=== PATIENT | female | born 1985 | race Caucasian/White ===

== ENCOUNTER 2017-06-22 23:05 | Emergency (ER) | payer BC ==
[2017-06-22 23:18] VITALS: BP 128/72
--- NOTE | 2017-06-23 00:27 | ER Document Report ---
HPI - HPI Pain Level: 4 Notes: Patient is a 31-year-old female with no significant past medical history presents to the ED complaining of left ankle pain status post injury this evening. Patient states that her foot was asleep after rocking her baby to sleep and she stood up and started walking when her ankle gave out she twisted it. Patient states that she has had pain since then, but is ambulatory. Patient states that she is limping. She has not noticed any obvious bruising or swelling. The pain does not radiate. Denies any headache, fever, chest pain , palpitations, syncope, cough, shortness of breath, wheeze, dyspnea, abdominal pain, nausea/vomiting/diarrhea, urinary retention, dysuria, hematuria, back pain , loss of control of bowel or bladder, numbness/tingling, saddle anesthesia, muscle paralysis/weakness, or rash. - ROS Notes: REVIEW OF SYSTEMS: CONSTITUTIONAL : Denies fever, chills, or sweats. Denies recent illness. EENT: Denies eye, ear, throat, or mouth pain or symptoms. Denies nasal or sinus congestion or discharge. Denies throat, tongue, or mouth swelling or difficulty swallowing. CARDIOVASCULAR: Denies chest pain. Denies palpitations or racing or irregular heart beat. Denies ankle edema. RESPIRATORY: Denies cough, cold, or chest congestion. Denies shortness of breath, difficulty breathing, or wheezing. GASTROINTESTINAL: Denies abdominal pain or distention. Denies nausea, vomiting , or diarrhea. Denies blood in vomitus, stools, or per rectum. Denies black, tarry stools. Denies constipation. GENITOURINARY: Denies difficulty urinating, painful urination, burning, frequency, blood in urine, or discharge. MUSCULOSKELETAL: see hpi SKIN: Denies rash, lesions or sores. NEUROLOGICAL: Denies confusion or altered mental status. Denies passing out or loss of consciousness. Denies dizziness or lightheadedness. Denies headache. Denies weakness or paralysis or loss of use of either side. Denies problems with gait or speech. Denies sensory loss, numbness, or tingling. Denies seizures. ALL OTHER SYSTEMS REVIEWED AND NEGATIVE. Dictation was performed using [employer] voice recognition software - EENT EENT: DENIES: Sore Throat, Ear Pain, Eye problems - NEURO Neurology: DENIES: Headache, Weakness, Vision blurred, Dizzinesss / Vertigo - CARDIOVASCULAR Cardiovascular: DENIES: Chest pain - RESPIRATORY Respiratory: DENIES: Trouble Breathing, Coughing - GASTROINTESTINAL Gastrointestinal: DENIES: Abdominal Pain, Black / Bloody Stools - URINARY Urinary: DENIES: Dysuria, Urgency, Frequency - REPRODUCTIVE LMP: na Reproductive: DENIES: : - MUSCULOSKELETAL Musculoskeletal: REPORTS: Extremity pain Past Medical History - Social History Smoking Status: Unknown if Ever Smoked Family History: CAD, Hyperlipidemia, Hypertension, Malignancy Patient has suicidal ideation: No Patient has homicidal ideation: No - Past Medical History Cardiac Medical History: Denies: Hx Hypertension, Hx Pulmonary Embolism, Hx Heart Murmur Pulmonary Medical History: Denies: Hx Asthma, Hx Sleep Apnea, Hx Tuberculosis Neurological Medical History: Denies: Hx Cerebrovascular Accident, Hx Seizures Endocrine Medical History: Denies: Hx Hyperthyroidism, Hx Hypothyroidism Renal/ Medical History: Denies: Hx Kidney Stones, Hx Ovarian Cysts, Hx Peritoneal Dialysis, Hx Pelvic Inflammatory Disease Malignancy Medical History: Denies: Hx Breast Cancer, Hx Cervical Cancer, Hx Ovarian Cancer GI Medical History: Denies: Hx Gastroesophageal Reflux Disease, Hx Hiatal Hernia , Hx Ulcer Musculoskeltal Medical History: Denies Hx Fibromyalgia Psychiatric Medical History: Denies: Hx Bipolar Disorder, Hx Depression, Hx Post Traumatic Stress Disorder , Hx Schizophrenia Traumatic Medical History: Denies: Hx Fractures Infectious Medical History: Denies: Hx HIV Past Surgical History: Reports: Hx Section - Immunizations Immunizations up to date: Yes Hx Diphtheria, Pertussis, Tetanus Vaccination: Yes Vertical Provider Document - CONSTITUTIONAL Agree With Documented VS: Yes Notes: PHYSICAL EXAMINATION: GENERAL: Well-appearing, well-nourished and in no acute distress. A&Ox4 LUNGS: Breath sounds clear to auscultation bilaterally and equal. No wheezes rales or rhonchi. HEART: Regular rate and rhythm without murmurs, rubs, gallops. Musculoskeletal: Left ankle: FROM to passive/active. Strength 5+/5. No obvious erythema, ecchymosis, swelling, or deformity noted. + tenderness to the anterior ankle to palp. Achilles intact. N/V intact distal. Extremities: No cyanosis, clubbing, or edema b/l. Peripheral pulses 2+. Capillary refill less than 3 seconds. NEUROLOGICAL: Normal speech, limping gait. Normal sensory, motor exams PSYCH: Normal mood, normal affect. SKIN: Warm, Dry, normal turgor, no rashes or lesions noted. - INFECTION CONTROL TRAVEL OUTSIDE OF THE [place] IN LAST 30 DAYS: No - RESPIRATORY O2 Sat by Pulse Oximetry: 100 Course - Re-evaluation Re-evalutation: 06/23/17 01:35 Patient is an afebrile, well-hydrated, 31-year-old female who presents to the ED with left ankle pain, suspect sprain versus strain. Vitals are stable. PE is otherwise unremarkable for any obvious neurovascular compromise, obvious tendon/ligament rupture, obvious fracture/dislocation, septic joint. X-ray was unremarkable for any acute pathology. Ankle stirrup splint provided today. Patient declined crutches. Conservative measures for symptoms otherwise. Recheck with your PCM in 3-5 days. Consider consult orthopedics/physical therapy. Return to the ED with any worsening/concerning symptoms otherwise as reviewed discharge. Patient is in agreement. - Vital Signs Vital signs: Temp Pulse Resp BP Pulse Ox 97.9 F 102 H 18 128/72 H 100 06/22/17 23:16 06/22/17 23:16 06/22/17 23:16 06/22/17 23:16 06/22/17 23:16 Discharge - Discharge Clinical Impression: Left ankle pain Qualifiers: Chronicity: acute Qualified Code(s): M25.572 - Pain in left ankle and joints of left foot Condition: Stable Disposition: HOME, SELF-CARE Instructions: Ankle Exercise Program ([facility]), Ankle Stirrup Splint ([facility]), Ice & Elevation ([facility]), Sprained Ankle ([facility]) Additional Instructions: Rest, Ice, Compression, Elevation Tylenol/ibuprofen as needed Light stretches daily Strength exercises as able Moist heat and massage may help F/u with your PCP in 3-5 days for a recheck Consider consult(s) with Orthopedics/physical therapy for ongoing/worsening symptoms Return to the ED with any worsening symptoms and/or development of fever, headache, chest pain, palpitations, syncope, shortness of breath, trouble breathing, abdominal pain, n/v/d, muscle weakness/paralysis, numbness/tingling, swelling, redness, or other worsening symptoms that are concerning to you. Forms: Elevated Blood Pressure, Return to Work Referrals: [facility] ([place] [Provider Group] - Follow up as needed
--- NOTE | 2017-06-23 01:34 | RADIOLOGY REPORT (SQ) ---
EXAM DESCRIPTION: ANKLE LEFT COMPLETE CLINICAL HISTORY: 31 years, Female, left ankle pain COMPARISON: None. Findings: Bones, joints, and soft tissues of the left ankle appear intact. IMPRESSION: No acute findings. 2011 [employer]- All Rights Reserved
== END 2017-06-23 01:46 | disposition home or self-care (01) ==
LOC: ER 23:05
DX: M25.572 Pain in left ankle and joints of left foot (principal); X50.1XXA Overexertion from prolonged static or awkward postures, initial encounter
CPT/HCPCS: 99283; 73610; L1902

== ENCOUNTER 2017-12-18 05:51 | Emergency (ER) | payer BC ==
[2017-12-18 06:33] LABS: ABSOLUTE EOSINOPHILS # (AUTO) 0.2 10^3/uL (0.0-0.6); ABSOLUTE LYMPHOCYTES (AUTO) 2.1 10^3/uL (0.5-4.7); ABSOLUTE MONOCYTES (AUTO) 1.3 10^3/uL (0.1-1.4); ABSOLUTE NEUT (AUTO) 9.5 10^3/uL (1.7-8.2); BASOPHILS % (AUTO) 0.3 % (0-2); EOSINOPHILS % (AUTO) 1.7 % (0-6); HEMATOCRIT 36.6 % (36.0-47.0); HEMOGLOBIN 12.6 g/dL (12.0-15.5); LYMPHOCYTES % (AUTO) 16.3 % (13-45); MEAN CORPUSCULAR HEMOGLOBIN 29.7 pg (27.0-33.4); MEAN CORPUSCULAR HGB CONC 34.3 g/dL (32.0-36.0); MEAN CORPUSCULAR VOLUME 87 fl (80-97); MONOCYTES % (AUTO) 9.7 % (3-13); PLATELET COUNT 374 10^3/uL (150-450); RED BLOOD COUNT 4.23 10^6/uL (3.72-5.28); RED CELL DISTRIBUTION WIDTH 12.6 % (11.5-14.0); TOTAL CELLS COUNTED % (AUTO) 100 %; WHITE BLOOD COUNT 13.2 10^3/uL (4.0-10.5)
[2017-12-18] MEDS ORDERED: NORMAL SALINE 1000 ML 1,000 ML IV ONE (06:34)
[2017-12-18 06:39] LABS: APPEARANCE,URINE SLIGHTLY-CLOUDY; BILIRUBIN,URINE NEGATIVE (NEGATIVE); COLOR,URINE DARK YELLOW; GLUCOSE, URINE NEGATIVE (NEGATIVE); KETONES,URINE NEGATIVE (NEGATIVE); LEUKOCYTE ESTERASE,URINE NEGATIVE (NEGATIVE); NITRITE,URINE POSITIVE (NEGATIVE); PROTEIN,URINE 100 mg/dL (NEGATIVE); URINE SPECIFIC GRAVITY 1.013
--- NOTE | 2017-12-18 06:53 | ER Document Report ---
ED General - General Mode of Arrival: Ambulatory Information source: Patient TRAVEL OUTSIDE OF THE [place] IN LAST 30 DAYS: No <HARINI PERALES - Last Filed: 12/18/17 16:11> <BHARGAV STODDARD - Last Filed: 12/18/17 17:57> - General Chief Complaint: Pelvic Pain Stated Complaint: FLANK PAIN Time Seen by Provider: 12/18/17 06:32 Notes: Patient is a 32 year old female presenting to the emergency department complaining of multiple symptoms including right lower quadrant pain, back pain , hematuria, and urine urgency. Patient states she attempted to get an IUD placed 2 days ago but it was unsuccessful so she received a depo shot. She states yesterday she began to have cloudy urine then hematuria, urgency and middle low back pain. Patient states she then began to take AZO. This morning patient states she woke up with severe right lower quadrant abdominal pain and decided to present to the emergency department. Patient denies any nausea. (HARINI PERALES) - Related Data Allergies/Adverse Reactions: No Known Allergies Allergy (Unverified 08/30/12 12:45) Past Medical History - Social History Smoking Status: Never Smoker Chew tobacco use (# tins/day): No Frequency of alcohol use: None Drug Abuse: None Family History: CAD, Hyperlipidemia, Hypertension, Malignancy Patient has suicidal ideation: No Patient has homicidal ideation: No - Past Medical History Cardiac Medical History: Denies: Hx Hypertension, Hx Pulmonary Embolism, Hx Heart Murmur Pulmonary Medical History: Denies: Hx Asthma, Hx Sleep Apnea, Hx Tuberculosis Neurological Medical History: Denies: Hx Cerebrovascular Accident, Hx Seizures Endocrine Medical History: Denies: Hx Hyperthyroidism, Hx Hypothyroidism Renal/ Medical History: Denies: Hx Kidney Stones, Hx Ovarian Cysts, Hx Peritoneal Dialysis, Hx Pelvic Inflammatory Disease Malignancy Medical History: Denies: Hx Breast Cancer, Hx Cervical Cancer, Hx Ovarian Cancer GI Medical History: Denies: Hx Gastroesophageal Reflux Disease, Hx Hiatal Hernia , Hx Ulcer Musculoskeletal Medical History: Denies Hx Fibromyalgia Psychiatric Medical History: Denies: Hx Bipolar Disorder, Hx Depression, Hx Post Traumatic Stress Disorder , Hx Schizophrenia Traumatic Medical History: Denies: Hx Fractures Infectious Medical History: Denies: Hx HIV Past Surgical History: Reports: Hx Section - Immunizations Immunizations up to date: Yes Hx Diphtheria, Pertussis, Tetanus Vaccination: Yes <HARINI PERALES - Last Filed: 12/18/17 16:11> Renal/ Medical History: Reports: Hx Ovarian Cysts - PCOS <BHARGAV STODDARD - Last Filed: 12/18/17 17:57> Physical Exam <HARINI PERALES - Last Filed: 12/18/17 16:11> <BHARGAV STODDARD - Last Filed: 12/18/17 17:57> - Vital signs Vitals: Temp Pulse Resp BP Pulse Ox 97.7 F 109 H 16 87/72 L 97 12/18/17 05:59 12/18/17 05:59 12/18/17 05:59 12/18/17 05:59 12/18/17 05:59 - Notes Notes: GENERAL: Alert, appears uncomfortable, writhing in bed. HEAD: Normocephalic, atraumatic. EYES: Pupils equal, round, and reactive to light. Extraocular movements intact. ENT: Oral mucosa moist, tongue midline. NECK: Full range of motion. Supple. Trachea midline. LUNGS: Clear to auscultation bilaterally, no wheezes, rales, or rhonchi. No respiratory distress. HEART: Regular rate and rhythm. No murmurs, gallops, or rubs. ABDOMEN: Soft, LUQ tender to palpation. Non-distended. Bowel sounds present in all 4 quadrants. EXTREMITIES: Moves all 4 extremities spontaneously. No edema. No cyanosis. NEUROLOGICAL: Alert and oriented x3. Normal speech. PSYCH: Normal affect, normal mood. SKIN: Warm, dry, normal turgor. No rashes or lesions noted. BACK: No CVA tenderness to palpation. (HARINI PERALES) Course - Laboratory Result Diagrams: 12/18/17 06:16 12/18/17 06:16 <HARINI PERALES - Last Filed: 12/18/17 16:11> - Laboratory Result Diagrams: 12/18/17 06:16 12/18/17 06:16 <BHARGAV STODDARD - Last Filed: 12/18/17 17:57> - Re-evaluation Re-evalutation: 12/18/17 08:31 CBC shows mild leukocytosis at 13.2, CMP grossly unremarkable, urinalysis shows large blood, positive nitrites, greater than 182 RBCs, trace bacteria. The positive nitrites could be false given the fact that she did take Azo. test is negative. Acute abdominal series was ordered due to concern for possible abdominal perforation given her recent attempted IUD placement, this was negative, CT scan the abdomen and pelvis shows mild right hydroureter and hydronephrosis, no obstructing ureteral calculus identified, these findings could be seen with recently passed ureteral calculus. It did show a normal appendix and no free air. At present I suspect patient has both a urinary tract infection and a recently passed ureteral stone. Patient is already taking Keflex, will be given Rocephin through the IV here and Bactrim will be added to her home medications. Patient will be placed on ibuprofen, acetaminophen and given Story for breakthrough pain. Discharge to home. Urine has been sent for culture. Patient is counseled to return for fevers, worsening pain or new or concerning symptoms. (BHARGAV STODDARD) - Vital Signs Vital signs: Temp Pulse Resp BP Pulse Ox 97.3 F 109 H 22 H 116/71 99 12/18/17 09:45 12/18/17 05:59 12/18/17 09:45 12/18/17 09:45 12/18/17 09:45 - Laboratory Laboratory results interpreted by sc: 12/18/17 12/18/17 12/18/17 06:16 06:16 06:16 WBC 13.2 H Absolute Neutrophils 9.5 H Sodium 145.7 H Chloride 111 H Urine Protein 100 H Urine Blood LARGE H Urine Nitrite POSITIVE H Urine Urobilinogen 4.0 H Discharge <HARINI PERALES - Last Filed: 12/18/17 16:11> <BHARGAV STODDARD - Last Filed: 12/18/17 17:57> - Discharge Clinical Impression: Ureteral stone Urinary tract infection Qualifiers: Urinary tract infection type: acute cystitis Hematuria presence: with hematuria Qualified Code(s): N30.01 - Acute cystitis with hematuria Condition: Stable Disposition: HOME, SELF-CARE Additional Instructions: Urinary Tract Infection Your evaluation indicates that you have a urinary tract infection. This is due to germs growing in the bladder. This is a common problem. This infection usually responds quickly to antibiotics. Your antibiotic should be taken exactly as prescribed. Drink plenty of fluids -- three to four quarts a day. Occasionally, a bladder anesthetic (Azo) will be prescribed to help stop the feeling of urgency until the antibiotic has a chance to clear the infection. This may cause your urine to be dark orange. Certain urine infections require a culture. If the doctor obtained a culture, the results will be back in two days. You should call to see if a change in treatment is needed. A repeat urinalysis after you finish treatment is often recommended. The physician will let you know if further testing is required. Call the doctor if you develop fever, chills, flank pain, inability to urinate, or blood in the urine. You also had a kidney stone. The CAT scan shows that your kidney stone has passed. You will still be sore for the next 1-2 days. If your pain worsens, you develop a fever or you develop any new or concerning symptoms please return. Please continue taking her Keflex in addition to the Bactrim that we have prescribed. Please use ibuprofen (Motrin or Advil) 600-800 mg every 8 hours as needed for pain or fever. You may also use acetaminophen (Tylenol) 1000 mg every 4-6 hours as needed for pain or fever. Please be aware that many medications contain acetaminophen, do not exceed a total of 1000 mg of acetaminophen every 6 hours. Prescriptions: Hydrocodone/Acetaminophen [Story 5-325 mg Tablet] 1 tab PO Q4HP PRN #10 tablet PRN Reason: Phenazopyridine HCl [Azo Urinary Pain Relief] 97.5 mg PO Q8HP PRN #7 tablet PRN Reason: Sulfamethoxazole/Trimethoprim [Bactrim Ds Tablet] 1 each PO BID #14 tablet Forms: Return to Work Scribe Attestation: 12/18/17 17:57 I personally performed the services described in the documentation, reviewed and edited the documentation which was dictated to the scribe in my presence, and it accurately records my words and actions. (BHARGAV STODDARD) Scribe Documentation - Scribe Written by Yariel:: Yariel Pedraza, 12/18/2017 07:25 acting as scribe for :: Oumar <HARINI PERALES - Last Filed: 12/18/17 16:11>
[2017-12-18] MEDS ORDERED: HYDROMORPHONE HCL INJ/PF 2 MG/ML AMPULE IV ONE (06:54)
[2017-12-18] MEDS ORDERED: KETOROLAC TROMETHAMINE INJ/PF 30 MG/1 ML SDV IV ONE (06:54)
[2017-12-18] MEDS ORDERED: PHENAZOPYRIDINE HCL 200 MG TABLET PO ONE (06:54)
[2017-12-18] MEDS ORDERED: ONDANSETRON HCL INJ/PF 4 MG/2 ML SDV IV ONE (06:54)
[2017-12-18 06:56] LABS: ALANINE AMINOTRANSFERASE 21 U/L (9-52); ALBUMIN 3.8 g/dL (3.5-5.0); ALKALINE PHOSPHATASE 75 U/L (38-126); ANION GAP 11 (5-19); ASPARTATE AMINO TRANSFERASE 17 U/L (14-36); BILIRUBIN,DIRECT 0.1 mg/dL (0.0-0.4); BILIRUBIN,TOTAL 0.3 mg/dL (0.2-1.3); BLOOD UREA NITROGEN 12 mg/dL (7-20); CALCIUM 9.1 mg/dL (8.4-10.2); CARBON DIOXIDE 24 mmol/L (22-30); CHLORIDE 111 mmol/L (98-107); GLUCOSE 106 mg/dL (75-110); POTASSIUM 3.7 mmol/L (3.6-5.0); SODIUM 145.7 mmol/L (137-145)
--- NOTE | 2017-12-18 07:21 | RADIOLOGY REPORT (SQ) ---
EXAM DESCRIPTION: CT ABDOMEN WITHOUT IV CONTRAST COMPLETED DATE/TME: 12/18/2017 06:46 CLINICAL HISTORY: Diffuse abdominal pain. COMPARISON: 06/04/2015 TECHNIQUE: CT of the abdomen and pelvis without IV contrast. Evaluation of the solid organs and vasculature is suboptimal due to lack of IV contrast. DLP: 338.25 mGy-cm FINDINGS: Lung Bases: The visualized lung bases are clear. Bones: No destructive bone lesions identified. Abdomen: Liver: The liver has normal size and density. Gallbladder: No calcified gallstones. Spleen, Pancreas, and Adrenal Glands: The spleen, pancreas, and adrenal glands are unremarkable. Kidneys: Moderate left hydroureter and hydronephrosis. No obstructing ureteral calculus identified. Vasculature: The aorta and IVC have normal caliber and position. Stomach: The stomach and duodenum have normal course. Other: No free intraperitoneal air. No free fluid or lymphadenopathy. Pelvis: Bladder: Urinary bladder is unremarkable. Bowel: No dilated loops of large or small bowel. Appendix: Normal appendix. Pelvis: Uterus is not enlarged. IMPRESSION: 1. Mild right hydroureter and hydronephrosis. No obstructing ureteral calculus identified. These findings could be seen with recently passed right ureteral calculus. This exam was performed according to our departmental dose-optimization program, which includes automated exposure control, adjustment of the mA and/or kV according to patient size and/or use of iterative reconstruction technique.
[2017-12-18] MEDS ORDERED: ONDANSETRON 4 MG TAB.RAPDIS PO ONE (07:36)
--- NOTE | 2017-12-18 08:07 | RADIOLOGY REPORT (SQ) ---
EXAM DESCRIPTION: ACUTE ABDOMEN SERIES COMPLETED DATE/TIME: 12/18/2017 7:22 am REASON FOR STUDY: hypotensive, pain, recent failed IUD place, ?perf COMPARISON: CT abdomen pelvis 12/18/2017, 05/25/2015 NUMBER OF VIEWS: Three views. TECHNIQUE: Frontal chest, supine abdomen and upright abdomen radiographic images acquired. LIMITATIONS: None. FINDINGS: CHEST: No acute infiltrates. No pleural effusion or pneumothorax. Cardiac silhouette siz e, donato, bony structures unremarkable. FREE AIR: None. No abnormal gas collections. BOWEL GAS PATTERN: Nonobstructive pattern. No dilated loops or air fluid levels. CALCIFICATIONS: No suspicious calcifications. HARDWARE: None in the abdomen. SOFT TISSUES: No gross mass or suggestion of organomegaly. BONES: No acute fracture. No worrisome bone lesions. OTHER: No other significant finding. IMPRESSION: NO RADIOGRAPHIC EVIDENCE FOR ACUTE ABDOMINAL DISEASE. TECHNICAL DOCUMENTATION: JOB ID: [id number] 1899 [employer]- All Rights Reserved Reading location - IP/workstation name: [email or web address]
[2017-12-18] MEDS ORDERED: CEFTRIAXONE 1 GM/D5W RTU 1 GM/50 ML RTUPB IV ONE (08:23)
[2017-12-18] MEDS ORDERED: CEFTRIAXONE INJ 1000 MG VIAL ONE (08:55)
[2017-12-18 09:54] VITALS: BP 116/71
== END 2017-12-18 10:05 | disposition home or self-care (01) ==
LOC: ER 05:51
DX: N30.01 Acute cystitis with hematuria (principal); N13.2 Hydronephrosis with renal and ureteral calculous obstruction; R10.31 Right lower quadrant pain; R10.812 Left upper quadrant abdominal tenderness; M54.5 Low back pain; R39.15 Urgency of urination; Z98.890 Other specified postprocedural states
CPT/HCPCS: 99284; 96372; 96374; 96375; 86900; 86901; 36415; 87086; 86850; 84703; 85025; 80053; 81001; 74022; 76380; S0119; J1885; J1170; J3490; J0696; J7030